=== PATIENT | female | born 1965 | race Asian ===

== ENCOUNTER 2023-02-06 10:23 | Day surgery (SDC) | payer OTHER ==
[~2023-02-06] VITALS: Ht 160 cm; Wt 77.1 kg
[2023-02-06] MEDS ORDERED: LIDOCAINE 2% 100 MG/5 ML UJET TP ONE (12:13)
[2023-02-06] MEDS ORDERED: fentaNYL citrate 0.05 MG/ML VIAL ONE (12:13)
[2023-02-06] MEDS ORDERED: MIDAZOLAM 2 MG/2 ML VIAL ONE (12:13)
[2023-02-06] MEDS ORDERED: SIMETHICONE 40 MG/0.6 ML ONE (13:02)
[2023-02-06] MEDS ORDERED: MIDAZOLAM 2 MG/2 ML VIAL IVP ONE (13:05)
[2023-02-06] MEDS ORDERED: fentaNYL citrate 0.05 MG/ML VIAL IVP ONE (13:05)
== END 2023-02-06 13:42 | disposition home or self-care (01) ==
LOC: MDS 10:23 → MMU 10:31 → MDS 13:42
PROVIDERS: ATTEND Internal Medicine Gastroenterology
DX: Z12.11 Encounter for screening for malignant neoplasm of colon (principal); D12.5 Benign neoplasm of sigmoid colon; K57.30 Diverticulosis of large intestine without perforation or abscess without bleeding; I10 Essential (primary) hypertension; Z20.822 Contact with and (suspected) exposure to COVID-19; Z79.899 Other long term (current) drug therapy
CPT/HCPCS: 45385; 87426; J2250; J3010